=== PATIENT | female | born 1995 | race Caucasian/White ===

== ENCOUNTER 2020-10-12 01:05 | Emergency (ER) | payer OTHER ==
[~2020-10-12] VITALS: Ht 172.7 cm; Wt 92.5 kg
[2020-10-12] MEDS ORDERED: IBUPROFEN 800800 MG PO (04:22)
[2020-10-12] MEDS ORDERED: VALIUM2 MG PO (04:22)
[2020-10-12 04:25] VITALS: BP 141/98
== END 2020-10-12 04:26 | disposition home or self-care (01) ==
LOC: ER 01:05
DX: S06.0X0A Concussion without loss of consciousness, initial encounter (principal); M54.2 Cervicalgia; V49.9XXA Car occupant (driver) (passenger) injured in unspecified traffic accident, initial encounter; Y93.89 Activity, other specified; Y92.89 Other specified places as the place of occurrence of the external cause; Y99.8 Other external cause status